=== PATIENT | male | born 1980 | race Caucasian/White ===

== ENCOUNTER 2016-07-21 16:00 | Emergency (ER) | payer OTHER ==
[~2016-07-21] VITALS: Ht 182.9 cm; Wt 102.1 kg
[2016-07-21 16:04] VITALS: BP 154/80; PULSE 122; RESP 18; TEMP 97.8; O2SAT 98
--- NOTE | 2016-07-21 16:11 | NUR ---
C/O right elbow pain, redness, 1 cm diameter fluctuant mass. States that this developed yesterday as mild redness. there is no obvious skin break.
--- NOTE | 2016-07-21 16:11 | NUR ---
Patient to ER bed 7 to gown for evaluation. Side rails up.
--- NOTE | 2016-07-21 16:20 | NUR ---
Dr. Nguyen at bedside to assess pt.
[2016-07-21 16:52] VITALS: BP 136/78; PULSE 98; RESP 20; TEMP 98; O2SAT 100
--- NOTE | 2016-07-21 16:52 | NUR ---
Patient given written and verbal discharge instructions and verbalizes understanding. ER MD discussed with patient the results and treatment provided. Patient in stable condition. ID arm band removed. Rx of Bactrim DS, Neosporin Plus Pain Relief, Tylenol given. Patient educated on pain management and to follow up with PMD. Pain Scale 2/10, tolerable. Opportunity for questions provided and answered.
== END 2016-07-21 16:52 | disposition home or self-care (01) ==
LOC: SED 16:00
DX: L03.113 Cellulitis of right upper limb (principal); F17.200 Nicotine dependence, unspecified, uncomplicated; Z88.0 Allergy status to penicillin; Z71.6 Tobacco abuse counseling
CPT/HCPCS: 99283

== ENCOUNTER 2017-04-14 22:30 | Emergency (ER) | payer OTHER ==
[~2017-04-14] VITALS: Ht 182.9 cm; Wt 97.5 kg
[2017-04-14 22:30] VITALS: BP_SYST 162
[2017-04-14 23:51] LABS: BILIRUBIN,URINE NEGATIVE (NEGATIVE); BLOOD, URINE NEGATIVE (NEGATIVE); CLARITY/URINE CLEAR (CLEAR); COLOR,URINE YELLOW (YELLOW); GLUCOSE,URINE NEGATIVE (NEGATIVE); KETONES,URINE NEGATIVE (NEGATIVE); LEUKOCYTE ESTERASE ,URINE NEGATIVE (NEGATIVE); NITRITE, URINE NEGATIVE (NEGATIVE); PROTEIN URINE TRACE (NEGATIVE); UROBILINOGEN,URINE 0.2 (0.2-1.0)
[2017-04-15 01:10] VITALS: BP_SYST 149
--- NOTE | 2017-04-15 01:56 | NUR ---
PT SEEN LEAVING ER .Patient left without being seen.
== END 2017-04-15 01:56 | disposition left against medical advice (07) ==
LOC: SED 22:30
DX: M79.1 Myalgia (principal); Z53.21 Procedure and treatment not carried out due to patient leaving prior to being seen by health care provider
CPT/HCPCS: 81003; 99281